=== PATIENT | male | born 1965 | race African-American/Black ===

== ENCOUNTER 2017-07-12 15:36 | Emergency (ER) | payer OTHER ==
[~2017-07-12 15:36] MED LIST: ASPI325T PO; HUMSS SQ/IV; HYDR-2768 PO; INSULIN GLULISINE SQ; LEVEMIR SC; LISI-366 PO; OMEP20TA39 PO; WARF7.5T4 PO
[2017-07-12 15:53] VITALS: BP 132/68; PULSE 104; RESP 18; TEMP 98.8; O2SAT 97
[2017-07-12] MEDS ORDERED: LISI40TA PO (16:13)
[2017-07-12] MEDS ORDERED: ASPI81CH7 CHEW (16:13)
[2017-07-12] MEDS ORDERED: INSU1.2I SQ (16:13)
[2017-07-12] MEDS ORDERED: NOVORP2 SQ (16:13)
[2017-07-12] MEDS ORDERED: APIX5TAB PO (16:13)
[2017-07-12] MEDS ORDERED: VENTAER INH (16:15)
[2017-07-12] MEDS ORDERED: AZIT500T2 PO (16:15)
[2017-07-12] MEDS ORDERED: PRED20 PO (16:15)
--- NOTE | 2017-07-12 16:20 | PD ---
HPI Chief Complaint: Cold / Flu Symptoms Time Seen by Provider: 16:08 Travel History International Travel<30 days: No Contact w/Intl Traveler<30days: No Traveled to known affect area: No History of Present Illness HPI 52-year-old -[place]ican male presents emergency department with one-week history of worsening congestion in the chest after having upper respiratory infection last week. Patient has increased cough especially when laying down at night, and wheezing and shortness of breath during the day. Patient is a non -smoker but states he did have asthma as a child. Patient states he is needed an inhaler in the past when he was sick. Patient denies significant headache, but does have sore throat from his cough, but denies ear pain. Patient denies heartburn or abdominal symptoms. Cough is somewhat productive of yellow sputum. Patient is allergic to shellfish. PFSH Past Medical History Depression: Yes Cardiovascular Problems: Yes High Cholesterol: Yes Diabetes: Yes Patient Takes Glucophage: No Diminished Hearing: Yes (RT EAR TODAY) Hypertension: Yes Musculoskeletal: No Neurologic: No Reproductive: No Respiratory: No Immunizations Current: Yes Tetanus Vaccination: < 5 Years Past Surgical History Appendectomy: Yes Genitourinary Surgery: Yes (LEFT KIDNEY REMOVAL) Social History Alcohol Use: No Tobacco Use: No Substance Use: No Allergies-Medications (Allergen,Severity, Reaction): Coded Allergies: shellfish derived (Unverified Allergy, Intermediate, Swelling, 07/12/17) Reported Meds & Prescriptions Reported Meds & Active Scripts Active Prednisone 20 Mg Tab 20 Mg PO DAILY 5 Days Ventolin Hfa 18 GM Inh (Albuterol Sulfate) 90 Mcg/Act Aer 2 Puff INH Q4-6H PRN Azithromycin 500 Mg Tab 500 Mg PO DAILY Reported Novolin R Inj (Insulin Human Regular) 1,000 Unit/10 Ml Vial 0 SQ DIRECTED Sliding Scale As Directed. Toujeo Solostar Pen Inj (Insulin Glargine) 300 Unit/Ml Pen 1 Units SQ Lisinopril 40 Mg Tab 40 Mg PO DAILY Aspirin Children's (Aspirin) 81 Mg Chew 81 Mg CHEW DAILY Eliquis (Apixaban) 5 Mg Tab 5 Mg PO BID Review of Systems Except as stated in HPI: all other systems reviewed are Neg General / Constitutional: No: Fever, Chills Eyes: No: Visual changes HENT: Positive: Headaches, Sore Throat, Rhinitis, Rhinorrhea, Congestion, No: Vertigo, Lightheadedness, Nosebleed, Neck Stiffness, Neck Pain, Dental Difficulties, Earache Cardiovascular: No: Chest Pain or Discomfort Respiratory: Positive: Cough, Shortness of Breath, Wheezing, No: Sneezing, Orthopnea, Hemoptysis, Night Sweats, Pleuritic Pain Gastrointestinal: No: Abdominal Pain Genitourinary: No: Dysuria Musculoskeletal: No: Pain Skin: No Rash Neurologic: No: Weakness Psychiatric: No: Depression Endocrine: No: Polydipsia Hematologic/Lymphatic: No: Easy Bruising Physical Exam Narrative GENERAL: Patient appears in mild distress. SKIN: Warm and dry. Normal color. Normal turgor HEAD: Atraumatic. Normocephalic. EYES: Pupils equal and round. No scleral icterus. No injection or drainage. ENT: No nasal bleeding or discharge. Mucous membranes pink and moist. TMs are clear bilaterally. No significant sinus tenderness noted. Posterior pharynx is unremarkable. Airways patent. NECK: Trachea midline. Supple and nontender. CARDIOVASCULAR: Regular rate and rhythm. RESPIRATORY: No accessory muscle use. Diffuse expiratory wheezes throughout to auscultation. No rales or rhonchi. Breath sounds equal bilaterally. GASTROINTESTINAL: Abdomen soft, non-tender, nondistended. Hepatic and splenic margins not palpable. MUSCULOSKELETAL: Extremities without clubbing, cyanosis, or edema. No obvious deformities. NEUROLOGICAL: Awake and alert. No obvious cranial nerve deficits. Motor grossly within normal limits. Five out of 5 muscle strength in the arms and legs. Normal speech. PSYCHIATRIC: Appropriate mood and affect; insight and judgment normal. Data Data Last Documented VS Vital Signs Date Time Temp Pulse Resp B/P (MAP) Pulse Ox O2 Delivery O2 Flow Rate FiO2 07/12/17 15:53 98.8 104 18 132/68 (89) 97 MDM Medical Decision Making Medical Screen Exam Complete: Yes Emergency Medical Condition: Yes Differential Diagnosis Upper respiratory infection. Congestion. Cough with wheeze. Wheezy bronchitis. Narrative Course Patient is treated with azithromycin 500 mg daily for 5 days. Patient is given albuterol metered-dose inhaler 2 puffs every 4-6 hours as needed cough and wheeze. Patient is given prednisone 20 mg daily for 5 days. Patient is to rest, push fluids, and follow-up if symptoms do not improve or worsen as needed. Diagnosis Primary Impression: Acute wheezy bronchitis Patient Instructions: General Instructions, How to Use a Metered-Dose Inhaler ( DC), Prednisone (By mouth) Additional Instructions: Patient is treated with azithromycin 500 mg daily for 5 days. Patient is given albuterol metered-dose inhaler 2 puffs every 4-6 hours as needed cough and wheeze. Patient is given prednisone 20 mg daily for 5 days. Patient is to rest, push fluids, and follow-up if symptoms do not improve or worsen as needed. Med/Other Pt SpecificInfo: Prescription(s) given Scripts Prednisone (Prednisone) 20 Mg Tab 20 MG PO DAILY for 5 Days, #5 TAB 0 Refills Prov: Alejo Dutta MD 07/12/17 Albuterol 18 GM Inh (Ventolin Hfa 18 GM Inh) 90 Mcg/Act Aer 2 PUFF INH Q4-6H Y for SHORTNESS OF BREATH, #1 INHALER 0 Refills Prov: Alejo Dutta MD 07/12/17 Azithromycin (Azithromycin) 500 Mg Tab 500 MG PO DAILY for Infection, #5 TAB 0 Refills Prov: Alejo Dutta MD 07/12/17 Disposition: 01 DISCHARGE HOME Condition: Stable Jimi Iqbal Jul 12, 2017 16:20
== END 2017-07-12 16:34 | disposition home or self-care (01) ==
LOC: NEPK 15:36
DX: J20.9 Acute bronchitis, unspecified (principal); F32.9 Major depressive disorder, single episode, unspecified; E78.00 Pure hypercholesterolemia, unspecified; E11.9 Type 2 diabetes mellitus without complications; I10 Essential (primary) hypertension
CPT/HCPCS: 99283